=== PATIENT | male | born 1995 ===

== ENCOUNTER 2017-04-16 19:48 | Emergency (ER) | payer OTHER ==
[~2017-04-16] VITALS: Ht 172.7 cm; Wt 92.4 kg
[2017-04-16 19:56] VITALS: TEMP 36.9; Ht 172.7 cm; Wt 92.4 kg
[2017-04-16] MEDS ORDERED: IBUPROFEN 600 MG TAB PO STA (20:03)
--- NOTE | 2017-04-16 21:47 | DIAGNOSTIC IMAGING REPORT ---
RIGHT FINGER(S) MIN 2 VIEWS ROUTINE, RIGHT WRIST W/NAVICULAR MIN 3 VIEWS HISTORY: 21 years-old Male Right thumb pain s/p playing basketball Right COMPARISON: None available TECHNIQUE: 3 views of the right wrist with navicular view. 3 views of the right first digit were also obtained. FINDINGS: Wrist: Peripherally corticated bone fragment is seen involving the base of the fifth metacarpal suggesting subacute or chronic fracture. No acute wrist fracture is identified. The scaphoid appears intact. Distal radius and ulna also appear to be intact. There is mild soft tissue swelling about the wrist and first digit. Fingers: There is moderate soft tissue swelling about the first metacarpophalangeal joint. There is apparent 6 mm medial subluxation of the first proximal phalanx in relation to the first metacarpal. Additionally, there is a 2 mm lateral and 1 mm ulnar radiodensities adjacent to the first metacarpal head suggesting avulsion fragments. IMPRESSION: 1. Subluxation of the first metacarpal phalangeal joint with apparent acute avulsion fractures in the region of the radial collateral and ulnar collateral ligaments. These findings could be followed up with a nonemergent MRI for further evaluation. 2. Subacute or chronic appearing fracture involves the base of the fifth metacarpal. The above report was generated using voice recognition software. It may contain grammatical, syntax or spelling errors. Electronically signed by: Dileep Lockhart M.D. 04/16/2017 9:46 PM Dictated Date/Time: 04/16/2017 9:41 PM
--- NOTE | 2017-04-16 21:58 | EMERGENCY ROOM VISIT NOTE ---
History First contact with patient: 19:59 Chief Complaint: FINGER PAIN Stated Complaint: DISLOCATED FINGER History of Present Illness The patient is a 21 year old male who presents to the Emergency Room via private vehicle escorted by 2 guards from [facility] with complaints of "dislocated finger". The patient states that yesterday around 7 PM, he was participating in basketball, and after he made a shot with the ball he developed a sharp pain in his right thumb up his arm. He notes swelling in the location of the right thumb. He states that he put in a note to see the nurse, and was sent here for further evaluation. He denies any numbness or tingling. He is right-handed. Review of Systems A complete 6-point Review of Systems was discussed with the patient, with pertinent positives and negatives listed in the History of Present Illness. All remaining Review of Systems questions can be considered negative unless otherwise specified. Past Medical/Surgical History No pertinent. Family History No pertinent. Social History Smoking Status: Former Smoker Patient is currently incarcerated. Current/Historical Medications No Active Prescriptions or Reported Meds Physical Exam Vital Signs Date Time Temp Pulse Resp B/P (MAP) Pulse Ox O2 Delivery O2 Flow Rate FiO2 04/16/17 22:32 61 18 132/90 99 04/16/17 21:32 56 16 122/83 98 Room Air 04/16/17 19:56 36.9 69 20 143/90 99 Room Air Physical Exam VITAL SIGNS - Vital signs and nursing notes were reviewed. Stable. GENERAL -21-year-old male appearing his stated age who is in no acute distress. Communicates well with provider and answers questions appropriately. SKIN - Without rashes. Skin overlying the right thumb is unremarkable. EXTREMITIES - No clubbing or peripheral cyanosis. No pretibial edema present. There is tenderness to palpation overlying the right thumb at the location of the MCP and IP joint. There is evidence of subluxation at the location of the distal right MCP joint. He is neurovascularly intact in this region. Capillary refill is excellent. +5/5 strength noted in UE/LE bilaterally. Medical Decision & Procedures ER Provider Diagnostic Interpretation: RIGHT FINGER(S) MIN 2 VIEWS ROUTINE, RIGHT WRIST W/NAVICULAR MIN 3 VIEWS HISTORY: 21 years-old Male Right thumb pain s/p playing basketball Right COMPARISON: None available TECHNIQUE: 3 views of the right wrist with navicular view. 3 views of the right first digit were also obtained. FINDINGS: Wrist: Peripherally corticated bone fragment is seen involving the base of the fifth metacarpal suggesting subacute or chronic fracture. No acute wrist fracture is identified. The scaphoid appears intact. Distal radius and ulna also appear to be intact. There is mild soft tissue swelling about the wrist and first digit. Fingers: There is moderate soft tissue swelling about the first metacarpophalangeal joint. There is apparent 6 mm medial subluxation of the first proximal phalanx in relation to the first metacarpal. Additionally, there is a 2 mm lateral and 1 mm ulnar radiodensities adjacent to the first metacarpal head suggesting avulsion fragments. IMPRESSION: 1. Subluxation of the first metacarpal phalangeal joint with apparent acute avulsion fractures in the region of the radial collateral and ulnar collateral ligaments. These findings could be followed up with a nonemergent MRI for further evaluation. 2. Subacute or chronic appearing fracture involves the base of the fifth metacarpal. The above report was generated using voice recognition software. It may contain grammatical, syntax or spelling errors. Electronically signed by: Dileep Lockhart M.D. 04/16/2017 9:46 PM Dictated Date/Time: 04/16/2017 9:41 PM Medications Administered Medications (Trade) Dose Ordered Sig/Anisha Route Start Time Stop Time Status Last Admin Dose Admin Ibuprofen (Motrin Tab) 600 mg NOW STAT PO 04/16/17 20:03 04/16/17 20:04 DC 04/16/17 20:15 600 MG Medical Decision Patient was seen and evaluated as above. He was given 600 mg of Motrin for his pain. Radiographs were obtained. Results as above. He presents today with what appears to be a subluxation, and potential ligamentous damage of his right thumb. At this time he appears stable from patient management, is neurovascularly intact and was fitted with a Ortho-Glass splint. I did attempt to reduce the deformity, and he was placed in Ortho-Glass blood. He tolerated this well. He was neurovascularly intact post event. The joint appears to be unstable, and the thumb spica splint will do well with anatomic alignment. He also was fitted with a Ortho-Glass splint at the base of the right fifth metacarpal secondary to the fracture. The patient this time appears stable for outpatient management, case was discussed with my attending, he'll be referred to orthopedics. This was all outlined in his discharge instructions for the [facility]. He was educated upon worrisome symptoms which to return, had questions or discharge, and was discharged home in good condition. In the evaluation and treatment of this patient, the following differential diagnoses were considered: Finger Fracture, Finger Dislocation, Finger Sprain, Finger Contusion, Jersey Finger, or Mallet Finger, Wrist Sprain, Wrist Fracture, Wrist Dislocation, Scapholunate Dissociation, Carpal Fracture, Metacarpal Fracture, Radial Styloid Process Fracture, Ulnar Styloid Process Fracture, or Carpal Tunnel Syndrome, among others. Impression Primary Impression: Wrist injury Additional Impression: Thumb injury Departure Information Dispostion Home / Self-Care Condition GOOD Prescriptions No Active Prescriptions or Reported Meds Referrals [facility] (PCP) Eb Elizondo M.D. Patient Instructions [facility] Additional Instructions You have been treated in the Emergency Department for Wrist Pain and thumb pain. For pain control, you can use the following [id number] medicines (if >12 yo): - Regular strength (325mg/tab) Tylenol (acetaminophen) 2 tabs every 4-6 hours as needed. Do not exceed 12 tablets in a 24 hour period. Avoid taking more than 3 grams (3000 mg) of Tylenol per day. This includes any other sources of acetaminophen you may take on a regular basis. - Regular strength (200 mg/tab) Advil (ibuprofen) 1-2 tabs every 4-6 hours as needed. Do not exceed a dose of 3200 mg per day. If this is a recent injury (<24 hrs), ice can be applied to the area of pain for the first 3 days to help decrease pain and inflammation. You have been provided the number for an Orthopaedic Surgeon. You should call this number as soon as possible to establish a follow-up visit from today's Emergency Department visit. Keep the brace/splint in place until evaluated by Orthopedics. Return to the Emergency Department if your current symptoms worsen despite treatment course outlined above, or if you develop any of the following symptoms : intractable pain despite aforementioned treatment course or new onset of numbness or tingling of the fingers. Please return to the emergency department with any new/concerning symptoms. IMAGING: RIGHT FINGER(S) MIN 2 VIEWS ROUTINE, RIGHT WRIST W/NAVICULAR MIN 3 VIEWS HISTORY: 21 years-old Male Right thumb pain s/p playing basketball Right COMPARISON: None available TECHNIQUE: 3 views of the right wrist with navicular view. 3 views of the right first digit were also obtained. FINDINGS: Wrist: Peripherally corticated bone fragment is seen involving the base of the fifth metacarpal suggesting subacute or chronic fracture. No acute wrist fracture is identified. The scaphoid appears intact. Distal radius and ulna also appear to be intact. There is mild soft tissue swelling about the wrist and first digit. Fingers: There is moderate soft tissue swelling about the first metacarpophalangeal joint. There is apparent 6 mm medial subluxation of the first proximal phalanx in relation to the first metacarpal. Additionally, there is a 2 mm lateral and 1 mm ulnar radiodensities adjacent to the first metacarpal head suggesting avulsion fragments. IMPRESSION: 1. Subluxation of the first metacarpal phalangeal joint with apparent acute avulsion fractures in the region of the radial collateral and ulnar collateral ligaments. These findings could be followed up with a nonemergent MRI for further evaluation. 2. Subacute or chronic appearing fracture involves the base of the fifth metacarpal. Problem Qualifiers
[2017-04-16 22:32] VITALS: BP 132/90; PULSE 61; O2SAT 99
== END 2017-04-16 22:23 | disposition home or self-care (01) ==
LOC: C.EDB 19:49 → C.EDD 22:23
DX: S69.91XA Unspecified injury of right wrist, hand and finger(s), initial encounter (principal); W21.05XA Struck by basketball, initial encounter; Y92.149 Unspecified place in prison as the place of occurrence of the external cause; Z87.891 Personal history of nicotine dependence